=== PATIENT | male | born 1995 | race Caucasian/White ===

== ENCOUNTER 2021-03-22 15:49 | Emergency (ER) | payer BC ==
[~2021-03-22 15:49] MED LIST: AMOXICILLIN875 MG PO
== END 2021-03-22 20:25 | disposition short-term general hospital (02) ==
LOC: ER1 15:49
DX: S61.452A Open bite of left hand, initial encounter (principal); S61.412A Laceration without foreign body of left hand, initial encounter; Z23 Encounter for immunization; W54.0XXA Bitten by dog, initial encounter
CPT/HCPCS: 73130; 90471; 90715; 96374; 96375; 99283; J0690; J1885